=== PATIENT | female | born 1945 | race Caucasian/White ===

== ENCOUNTER 2018-11-10 16:33 | Emergency (ER) | payer OTHER ==
--- NOTE | 2018-11-10 17:05 | PDOC ---
History of Present Illness - General Chief Complaint: Chest Pain Stated Complaint: CHEST PAIN Time Seen by Provider: 11/10/18 16:49 - History of Present Illness Initial Comments: The pt is a 72F w/ a history of HTN, GERD, HLD, hypothyroidism, aneurysm s/p corrective surgery (not coil) who presents for evaluation of chest pain. She reports that 1600 yesterday while sitting on the couch she began to experience [id number] chest pain that is non-radiating, intermittent, non- exertional w/ no identifiable associated symptoms. The pt noted it was worse throughout the afternoon. She went to [facility] where she was evaluated. Trop neg and pt was discharged and advised to f/u w/ Cardiology. Today the pt noted continued pain of the same quality but less intense (approx 10% of what it was). Denies recent illness, fevers/chills, WEBER, vision changes, SOB, abdominal pain, N /V/C/D, dysuria, hematuria, or changes in sensation. Takes ASA 81mg daily. PMH: HTN, GERD, HLD, hypopituitarism +Tobacco, Denies EtOH 11/10/18 17:06 Past History - Past Medical History Allergies/Adverse Reactions: Allergies Allergy/AdvReac Type Severity Reaction Status Date / Time Penicillins Allergy Severe Rash Verified 12/29/15 09:20 Home Medications: Ambulatory Orders Bromocriptine Mesylate [Parlodel] 0.625 mg PO DAILY 12/23/13 Hydrochlorothiazide [Hctz -] 25 mg PO DAILY 12/23/13 Levothyroxine [Synthroid -] 50 mcg PO DAILY 12/23/13 Ranitidine [Zantac -] 150 mg PO BID 12/23/13 Timolol Maleate [Istalol] 5 ml OP DAILY 12/23/13 Docusate Sodium [Colace -] 100 mg PO PRN PRN 04/27/15 Atorvastatin Ca [Lipitor] 20 mg PO HS #0 tablet 04/28/15 Mag Carb/Aluminum Hydrox/Algin [Gaviscon Extra Strength Liquid] 355 ml PO PRN # 0 oral.susp 05/08/16 Aspirin 81 mg PO DAILY 11/10/18 Anemia: No Asthma: No Cancer: No Cardiac Disorders: No CVA: No COPD: No CHF: No Dementia: No Diabetes: No GI Disorders: Yes (GERD,DIVERTICULOSIS, COLON POLYP) Disorders: Yes (DION.OVARIAN COMPLEX CYSTS) HTN: Yes Hypercholesterolemia: Yes Seizures: No 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) - Surgical History Abdominal Surgery: No Appendectomy: No Cardiac Surgery: No Cholecystectomy: No Lung Surgery: No Neurologic Surgery: No Orthopedic Surgery: Yes (RIGHT SHOULDER SX) - Suicide/Smoking/Psychosocial Hx Smoking History: Current every day smoker Have you smoked in the past 12 months: Yes Number of Cigarettes Smoked Daily: 20 'Breaking Loose' booklet given: 04/27/15 Hx Alcohol Use: No Drug/Substance Use Hx: No Substance Use Type: None Review of Systems - Review of Systems Able to Perform ROS?: Yes Comments:: GENERAL/CONSTITUTIONAL: No fever or chills. No weakness HEAD, EYES, EARS, NOSE AND THROAT: No change in vision. No ear pain or discharge. No sore throat CARDIOVASCULAR: No shortness of breath RESPIRATORY: Denies cough, hemoptysis GASTROINTESTINAL: No nausea, vomiting, diarrhea or constipation GENITOURINARY: No dysuria, frequency, or change in urination MUSCULOSKELETAL: No joint or muscle swelling or pain. No neck or back pain SKIN: No rash NEUROLOGIC: No headache, vertigo, loss of consciousness, or change in strength/ sensation ENDOCRINE: No increased thirst. No abnormal weight change HEMATOLOGIC/LYMPHATIC: No anemia, easy bleeding, or history of blood clots ALLERGIC/IMMUNOLOGIC: No hives or skin allergy 11/10/18 17:07 Is the patient limited Thai proficient: No *Physical Exam - Vital Signs Vital Signs Temp Pulse Resp BP Pulse Ox 98.7 F 90 18 151/77 100 11/10/18 17:11 11/10/18 17:11 11/10/18 17:11 11/10/18 17:11 11/10/18 17:11 - Physical Exam Comments: GENERAL: Awake, alert, and oriented to person/place/time, in no acute distress HEAD: No signs of trauma, normocephalic, atraumatic EYES: PERRLA, EOMI, sclera anicteric, conjunctiva clear ENT: Hearing grossly normal, nares patent, oropharynx clear without exudates. Moist mucosa LUNGS: No distress, speaks full sentences, clear to auscultation bilaterally HEART: Regular rate and rhythm, normal S1 and S2, no murmurs appreciated, peripheral pulses normal and equal bilaterally ABDOMEN: Soft, nontender, normoactive bowel sounds. No guarding, no rebound EXTREMITIES: Normal inspection, Normal range of motion, no edema NEUROLOGICAL: Cranial nerves II through XII grossly intact. Normal speech, no focal sensorimotor deficits SKIN: Warm, Dry, no rashes or lesions noted 11/10/18 17:17 ED Treatment Course - LABORATORY CBC & Chemistry Diagram: 11/10/18 18:05 Medical Decision Making - Medical Decision Making Results from [facility] dated 11/09/18 @ 2236 Trop I stat 0.00 Cr 1.09 WBC 9.5 Hgb 12.4 Will obtain an ECG and CXR and Trop I here ECG w/ NSR, 1st degree AV block w/ incomplete RBBB, HR 72; QTc 490 -Similar to previous ECG in 201411/10/18 17:56 Pt discussed w/ Cardiology, will obtain two Trop; recommend ECHO and stress test Pt follows up with Dr. Andersen 11/10/18 18:24 CXR w/o evidence of PNA/PNX 11/10/18 18:33 Initial Trop I neg 11/10/18 19:02 *DC/Admit/Observation/Transfer Diagnosis at time of Disposition: Chest pain Qualifiers: Chest pain type: unspecified Qualified Code(s): R07.9 - Chest pain, unspecified - Referrals Referrals: Sharita Alejandre MD [Primary Care Provider] - Brandon Andersen MD [Staff Physician] - - Patient Instructions Printed Discharge Instructions: DI for Chest Pain - Post Discharge Activity
[2018-11-10 17:14] VITALS: BP 151/77; PULSE 90; TEMP 98.7; BMI 31.8
--- NOTE | 2018-11-10 17:18 | PDOC ---
Attending Attestation - HPI HPI: 11/10/18 18:16 72 year old female with past medical history of hypertension, hyperlipidemia, aneurysm s/p coil who presents to the ED with complaints of sternal, exertional chest pain that began last night. She states the pain is pressure-like, non- radiating and is not associated with nausea, vomiting, diaphoresis, SOB, headache, or focal neurological deficits. It is not relieved by tums or aspirin. Patient was in the [place] last evening when she developed her symptoms and went to the local urgent care. Her blood pressure was noted to be elevated and an ECG was performed which was "abnormal". She was sent to [facility] where a cardiac workup was done. She states her cardiac enzymes were negative and had a normal CXR report, however patient does not have any records from this visit. She was discharged and told to follow up with her hospital scientist. Today, her chest pain has persisted, prompting her to be seen in the ER today. PCP: Dr. Alejandre Cards: Dr. Andersen - Physicial Exam PE: 11/10/18 18:17 GENERAL: Well developed, well nourished. Awake and alert. No acute distress. CARDIOVASCULAR: Regular rate and rhythm. No murmurs, rubs, or gallops. PULMONARY: No evidence of respiratory distress. Lungs clear to auscultation bilaterally. ABDOMINAL: Soft. Non-tender. Non-distended. No rebound or guarding. EXTREMITIES: No cyanosis. No clubbing. No edema. No calf tenderness. SKIN: Warm and dry. Normal capillary refill. No rashes. No jaundice. NEUROLOGICAL: Alert, awake, appropriate. Cranial nerves 2-12 intact. - Medical Decision Making 11/10/18 18:18 Documentation prepared by Casi Perez, acting as medical registrar for Oliva Lucio MD. 11/10/18 18:00 Phone call placed to Dr. Silva, covering for Dr. Andersen. Call was returned promptly and case was discussed. <Casi Perez - Last Filed: 11/10/18 18:18> - Resident Resident Name: Enzo Altamirano - ED Attending Attestation I have performed the following: I have examined & evaluated the patient, The case was reviewed & discussed with the resident, I agree w/resident's findings & plan, Exceptions are as noted - HPI HPI: 11/10/18 17:24 72-year-old female who had chest pain since yesterday. Presents today with the same complaint. History of present illness she was seen and evaluated yesterday in a [facility] and had a cardiac workup that was negative, by patient' s report. - Medical Decision Making 11/10/18 19:27 plan 2 trop -pt was encouraged to be admitted for stress test in the morning but she insisted that if her 2 troponins were negative she would follow up with Dr Pérez tomorrow 11/10/18 21:47 pt has had 2 negative troponins and d/c home <Oliva Lucio - Last Filed: 11/10/18 21:47>
[2018-11-10] MEDS ORDERED: ASPIRIN 81 MG CHEWABLE TABLETS PO ONE (18:22)
[2018-11-10] MEDS ORDERED: ASPIRIN 81 MG CHEWABLE TABLETS ONE ×2 (18:24→18:29)
[2018-11-10 18:59] LABS: ALBUMIN 3.5 g/dl (3.4-5.0); ALK PHOS 48 U/L (45-117); ANION GAP 7 MMOL/L (8-16); BILIRUBIN,TOTAL 0.4 mg/dL (0.2-1); BLOOD UREA NITROGEN 16 mg/dL (7-18); CALCIUM 8.6 mg/dL (8.5-10.1); CHLORIDE 104 mmol/L (98-107); CO2 26 mmol/L (21-32); CREATININE 1.2 mg/dL (0.55-1.3); GLUCOSE,RANDOM 95 mg/dL (74-106); POTASSIUM 3.5 mmol/L (3.5-5.1); SGOT/AST 17 U/L (15-37); SGPT/ALT 20 U/L (13-61); SODIUM 137 mmol/L (136-145); TOT PROT 6.9 g/dl (6.4-8.2)
--- NOTE | 2018-11-10 21:24 | PDOC ---
*Physical Exam - Vital Signs Last Vital Signs Temp Pulse Resp BP Pulse Ox 98.7 F 90 18 151/77 100 11/10/18 17:11 11/10/18 17:11 11/10/18 17:11 11/10/18 17:11 11/10/18 17:11 ED Treatment Course - LABORATORY CBC & Chemistry Diagram: 11/10/18 18:05 - ADDITIONAL ORDERS Additional order review: Laboratory Results 11/10/18 18:05 Sodium 137 Potassium 3.5 Chloride 104 Carbon Dioxide 26 Anion Gap 7 L BUN 16 Creatinine 1.2 Creat Clearance w eGFR 44.29 Random Glucose 95 Calcium 8.6 Total Bilirubin 0.4 AST 17 ALT 20 Alkaline Phosphatase 48 Troponin I < 0.02 Total Protein 6.9 Albumin 3.5 - Medications Given in the ED: ED Medications Discontinued Medications Generic Name Dose Route Start Last Admin Trade Name Freq PRN Reason Stop Dose Admin Aspirin 243 mg 11/10/18 18:22 11/10/18 18:45 Asa - PO 11/10/18 18:23 243 mg ONCE ONE Administration Medical Decision Making - Medical Decision Making Sign out received from Dr Altamirano Dania Kyle is a 72yo woman with a PMH of HTN, GERD, HLD, hypothyroidism, aneurysm s/p surgical correction who presented to the ED with non-radiating, intermittent, non-exertional, anterior thoracic chest pain. ED course so far was notable for EKG without concerning changes (NSR w/ 1st degree block, HR 72) unchanged from prior. Trop negative. Dr Altamirano discussed the results with Ms Kyle's lead programmer, Dr Andersen, who recommended echo and stress test. Per conversation held with day team, Ms Kyle decided to stay for a repeat troponin but will follow up as an outpatient for additional testing with cardiology. 11/10/18 21:24 - Repeat trop negative - Will d/c home with cardiology follow up. Discussed with Dr Lucio. Iveth Feliz PGY1 *DC/Admit/Observation/Transfer Diagnosis at time of Disposition: Chest pain Qualifiers: Chest pain type: unspecified Qualified Code(s): R07.9 - Chest pain, unspecified - Discharge Dispostion Disposition: HOME Condition at time of disposition: Stable Decision to Admit order: No - Referrals Referrals: Sharita Alejandre MD [Primary Care Provider] - Brandon Andersen MD [Staff Physician] - - Patient Instructions Printed Discharge Instructions: DI for Chest Pain Additional Instructions: Discharge Instructions: You were seen in the ER for chest pain. You had an EKG and blood tests to make sure the pain was not caused by a heart problem, but your tests were normal. Your regular lead programmer was called, and he would like you to schedule several additional tests as an outpatient. Please call him on Sunday to set these up and to schedule a follow up appointment. Continue to take all of your regular medications as prescribed. Seek immediate medical care if you have worsening symptoms, chest pain with exertion, shortness of breath, lightheadedness, or any other medical emergency. - Post Discharge Activity
--- NOTE | 2018-11-11 22:50 | EKG ---
Test Reason : Blood Pressure : / mmHG Vent. Rate : 072 BPM Atrial Rate : 072 BPM P-R Int : 214 ms QRS Dur : 094 ms QT Int : 448 ms P-R-T Axes : 044 -03 042 degrees QTc Int : 490 ms SINUS RHYTHM WITH 1ST DEGREE A-V BLOCK INCOMPLETE RIGHT BUNDLE BRANCH BLOCK PROLONGED QT ABNORMAL ECG WHEN COMPARED WITH ECG OF 28-APR-2015 08:43, T WAVE VARIATION Confirmed by DARRELL SMILEY, JOSE ([id number]) on 11/11/2018 10:50:11 PM Referred By: Confirmed By:JOSE RAMÍREZ MD
== END 2018-11-10 21:46 | disposition home or self-care (01) ==
LOC: JER 16:33
DX: R07.9 Chest pain, unspecified (principal); I10 Essential (primary) hypertension; E78.00 Pure hypercholesterolemia, unspecified; K21.9 Gastro-esophageal reflux disease without esophagitis; E23.0 Hypopituitarism; F17.210 Nicotine dependence, cigarettes, uncomplicated
CPT/HCPCS: 71045-TC-FY; 80053; 84484; 93005; 93010; 99283-25

== ENCOUNTER 2019-07-04 09:01 | Day surgery (SDC) | payer OTHER ==
[2019-07-03 10:28] VITALS: BMI 27.1
[2019-07-04 13:22] VITALS: BP 112/62; PULSE 84; TEMP 98
--- NOTE | 2019-07-07 17:34 | PATH ---
Surgical Pathology Report Patient Name: FABIÁN BRIGGS [facility]. Rec. #: [id number] /Age/Gender: 1945 (Age: 73) / F Account: [id number] Location: U-ENDOSCOPY Taken: 07/04/2019 Received: 07/04/2019 Reported: 07/07/2019 Physicians: Hong Schneider M.D. Specimen(s) Received RECTAL POLYPS Clinical History History of colonic adenomatous polyps, family history of colon cancer Postoperative diagnosis: Colon polyps, diverticulosis Final Diagnosis RECTAL POLYPS, BIOPSY: HYPERPLASTIC POLYP(S). Electronically Signed Yuliya Villanueva M.D. Gross Description Received in formalin, labeled "rectal polyps biopsy" are 5 alejo, irregular portions of soft tissue ranging from 0.1-0.4 cm. in greatest dimension. The specimens are submitted in toto in one cassette. /07/04/201907/04/2019
== END 2019-07-04 12:35 | disposition home or self-care (01) ==
LOC: JASU-ENDO 09:01
PROVIDERS: ATTEND Internal Medicine Gastroenterology
PROC: 0DBP8ZX Excision of Rectum, Via Natural or Artificial Opening Endoscopic, Diagnostic (ICD-10-PCS; principal; 2019-07-04 10:15)
DX: Z12.11 Encounter for screening for malignant neoplasm of colon (principal); Z86.010 Personal history of colon polyps; Z80.0 Family history of malignant neoplasm of digestive organs; K57.30 Diverticulosis of large intestine without perforation or abscess without bleeding; K62.1 Rectal polyp; K64.4 Residual hemorrhoidal skin tags
CPT/HCPCS: 88305-TC

== ENCOUNTER 2020-07-01 16:58 | Emergency (ER) | payer OTHER ==
[2020-07-01 17:08] VITALS: BP 127/73; TEMP 98.6; BMI 26.4
[2020-07-01 17:09] VITALS: PULSE 89
--- OUTSIDE RECORDS SUMMARY | 2020-07-01 17:12 | XMS ---
:1945 Author Organization [facility] Support Name Relationship Address Phone RE, RETIRED Unavailable Unavailable Unavailable RE Unavailable Unavailable Unavailable FRITZ BACA FRIEND [address] [place] [address] Re-disclosure Warning The records that you are about to access may contain information from federally- assisted alcohol or drug abuse programs. If such information is present, then the following federally mandated warning applies: This information has been disclosed to you from records protected by federal confidentiality rules (42 CFR part 2). The federal rules prohibit you from making any further disclosure of this information unless further disclosure is expressly permitted by the written consent of the person to whom it pertains or as otherwise permitted by 42 CFR part 2. A general authorization for the release of medical or other information is NOT sufficient for this purpose. The Federal rules restrict any use of the information to criminally investigate or prosecute any alcohol or drug abuse patient.The records that you are about to access may contain highly sensitive health information, the redisclosure of which is protected by Article 27-F of the [facility] Public Health law. If you continue you may haveaccess to information: Regarding HIV / AIDS; Provided by facilities licensed or operated by the [facility] Office of Mental Health; or Provided by the [facility] Office for People With Developmental Disabilities. If such information is present, then the following [facility] mandated warning applies: This information has been disclosed to you from confidential records which are protected by state law. State law prohibits you from making any further disclosure of this information without the specific written consent of the person to whom it pertains, or as otherwise permitted by law. Any unauthorized further disclosure in violation of state law may result in a fine or senior care sentence or both. A general authorization for the release of medical or other information is NOT sufficient authorization for further disclosure. Insurance Providers Payer name Policy type Policy ID Covered Covered democrat's Policy P allan / Coverage democrat ID relationship to Lazar Inf ormation type lazar AETNA MEBMZMVP SP MEBMZMVP MEDICARE AETNA MEBMZMVP SP MEBMZMVP MEDICARE
--- NOTE | 2020-07-01 17:19 | PDOC ---
Suture Removal/Wound Check HPI - History of Present Illness Chief Complaint: Suture/Staple Removal (other) Stated Complaint: REMOVAL SUTURES Time Seen by Provider: 07/01/20 17:17 History Source: Yes: Patient, Old Records Exam Limitations: Yes: No Limitations Treated at: [facility] Date of Last ED visit: 06/21/20 - Previous ED Treatment Type of procedure performed on last visit: Yes: Laceration Repair Tetanus Immunization: Yes: Up to Date Antibiotics Prescribed: No Past History - Medical History Allergies/Adverse Reactions: Allergies Allergy/AdvReac Type Severity Reaction Status Date / Time Penicillins Allergy Severe Rash Verified 06/22/20 10:06 Home Medications: Ambulatory Orders Bromocriptine Mesylate [Parlodel] 0.625 mg PO DAILY 12/23/13 Hydrochlorothiazide [Hctz -] 25 mg PO DAILY 12/23/13 Levothyroxine [Synthroid -] 50 mcg PO DAILY 12/23/13 Ranitidine [Zantac -] 150 mg PO BID 12/23/13 Docusate Sodium [Colace -] 100 mg PO PRN PRN 04/27/15 Atorvastatin Ca [Lipitor] 20 mg PO HS #0 tablet 04/28/15 Aspirin 81 mg PO DAILY 11/10/18 Cholecalciferol (Vitamin D3) [Vitamin D -] 400 unit PO DAILY 07/03/19 Timolol 0.25% [Timoptic 0.25%] 0 ml OU BID 07/03/19 Clindamycin HCl 150 mg PO TID #21 capsule 07/01/20 Anemia: No Asthma: No Cancer: No Cardiac Disorders: No CVA: No COPD: No CHF: No Dementia: No Diabetes: No GI Disorders: Yes (GERD,DIVERTICULOSIS, COLON ADENOMAS) Disorders: Yes (DION.OVARIAN COMPLEX CYSTS) HTN: Yes Hypercholesterolemia: Yes Seizures: No 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) - Surgical History Abdominal Surgery: No Appendectomy: No Cardiac Surgery: No Cholecystectomy: No Lung Surgery: No Neurologic Surgery: Yes (BYPASS OF 2 CEREBRAL ANEURYSMS) Orthopedic Surgery: Yes (RIGHT SHOULDER SX) - Psycho-Social/Smoking History Smoking History: Current every day smoker Have you smoked in the past 12 months: Yes Number of Cigarettes Smoked Daily: 20 Information on smoking cessation initiated: No 'Breaking Loose' booklet given: 04/27/15 - Substance Abuse Hx (Audit-C & DAST Scrn) How often the patient has a drink containing alcohol: Never Score: In Men: 4 or > Positive; In Women: 3 or > Positive: 0 Screen Result (Pos requires Nsg. Audit-10AR): Negative In the last yr the pt used illegal drug/Rx for NonMed reason: No Score: Yes response is considered Positive: 0 Screen Result (Positive result requires Nsg. DAST-10): Negative Suture Removal/Wound Check PE - Physical Exam Laceration/Wound Check Symptoms: reports: Redness Current Severity Level: None Maximum Severity Level: None Pain Localization: None Location of Laceration/Wound: right: Hand (Dorsum of the hands over the fifth metacarpal) Pain Radiation: None *Review of Systems - Review of Systems Able to Perform ROS?: Yes Constitutional: No: Symptoms Reported HEENTM: No: Symptoms Reported Respiratory: No: Symptoms reported Cardiac (ROS): No: Symptoms Reported ABD/GI: No: Symptoms Reported : No: Symptoms Reported Musculoskeletal: No: Symptoms Reported Integumentary: Yes: See HPI Neurological: No: Symptoms reported *Physical Exam - Vital Signs Last Vital Signs Temp Pulse Resp BP Pulse Ox 98.6 F 89 19 127/73 100 07/01/20 17:06 07/01/20 17:06 07/01/20 17:06 07/01/20 17:06 07/01/20 17:06 - Physical Exam General Appearance: Yes: Appropriately Dressed. No: Apparent Distress Integumentary: positive: Dry, Warm, Erythema, Other (2 wounds present to the dorsum of the right hand over the fifth metacarpal. [address] and 1 wounds [address] and the other with surrounding erythema. No fluctuance or discharge is present. Wounds are well approximated.) Medical Decision Making - Medical Decision Making 07/01/20 17:22 A/P: 74-year-old woman with encounter for suture removal Suture line is well approximated and well-healed. Area surrounding the wounds is erythematous with the appearance consistent with cellulitis There is no discharge, drainage or fluctuance present upon palpation 7 stitches removed without incident Discharge home with prescription for clindamycin as patient is allergic to penicillins. I discussed the physical exam findings, ancillary test results and final diagnoses with the patient. I answered all of the patient's questions. The patient was satisfied with the care received and felt comfortable with the discharge plan and treatment plan. The patient will call their primary care physician within 24 hours to arrange follow-up and will return to the Emergency Department with any new, persistent or worsening symptoms. Portions of this note have been documented using voice recognition software. As a result, errors may occur in the manager intermediate process. Effort has been made to correct all grammatical and manager intermediate error, but some may have been missed which may produce sporadic inaccurate manager intermediate or nonsensical phrases. Discharge - Discharge Information Problems reviewed: Yes Clinical Impression/Diagnosis: Encounter for removal of sutures Cellulitis Qualifiers: Site of cellulitis: extremity Site of cellulitis of extremity: upper extremity Laterality: right Qualified Code(s): L03.113 - Cellulitis of right upper limb Condition: Stable Disposition: HOME - Admission No - Additional Discharge Information Prescriptions: Clindamycin HCl 150 mg PO TID #21 capsule - Follow up/Referral Referrals: Sharita Alejandre MD [Primary Care Provider] - - Patient Discharge Instructions Additional Instructions: Take clindamycin 150 mg 3 times a day for the next 7 days Finish all antibiotics even if you feel better. Apply warm compresses to affected areas as needed. Return to emergency department for any worsening pain, drainage, or any other concerns. Thank you very much for choosing us to provide your emergent health care needs. - Post Discharge Activity
== END 2020-07-01 17:22 | disposition home or self-care (01) ==
LOC: JER 16:58 → JERFT 16:58
DX: Z48.02 Encounter for removal of sutures (principal); L03.113 Cellulitis of right upper limb
CPT/HCPCS: 99282-25

== ENCOUNTER 2022-07-14 13:50 | Emergency (ER) | payer OTHER ==
[2022-07-14 14:06] VITALS: BP 124/75; PULSE 85; RESP 18; TEMP 97.8; BMI 26.9
[2022-07-14 15:39] LABS: BASO % 0.7 % (0-2.0); EOS % 2.3 % (0-4.5); HEMOGLOBIN 12.4 GM/dL (10.7-15.3); LYMPH % 31.4 % (8-40); MCH 31.2 pg (25.7-33.7); MCHC 34.3 g/dl (32.0-36.0); MEAN CELL VOLUME 90.9 fl (80-96); MEAN PLT VOLUME 7.5 fl (7.5-11.1); MONO % 8.9 % (3.8-10.2); NEUT % 56.7 % (42.8-82.8); PLATELET COUNT 265 10^3/uL (134-434); RBC 3.97 M/mm3 (3.60-5.2); RDW 13.8 % (11.6-15.6); WHITE BLOOD COUNT 7.2 K/mm3 (4.0-10.0)
[2022-07-14 15:48] LABS: INR 1.01 (0.83-1.09); PROTHROMBIN TIME (PATIENT) 11.6 SEC (9.7-13.0)
[2022-07-14 15:51] LABS: ACTIVATED PTT 33.3 SECONDS (25.2-36.5)
[2022-07-14 16:02] LABS: CALCIUM 9.2 mg/dL (8.5-10.1)
[2022-07-14 16:03] LABS: ALBUMIN 3.5 g/dl (3.4-5.0); BLOOD UREA NITROGEN 15.4 mg/dL (7-18)
[2022-07-14 16:05] LABS: CREATININE 1.2 mg/dL (0.55-1.3)
[2022-07-14 16:08] LABS: BILIRUBIN,TOTAL 0.6 mg/dL (0.2-1); TOT PROT 7.1 g/dl (6.4-8.2)
[2022-07-14] MEDS ORDERED: POTASSIUM CHLORIDE ORAL LIQUID 20 MEQ/15 ML PO ONE (16:33)
[2022-07-14] MEDS ORDERED: POTASSIUM CHLORIDE TABS 20 MEQ TABLET.ER (FP) PO ONE (16:42)
[2022-07-14] MEDS ORDERED: POTASSIUM CHLORIDE ORAL LIQUID 20 MEQ/15 ML ONE (16:44)
== END 2022-07-14 19:20 | disposition left against medical advice (07) ==
LOC: JER 13:50
DX: R07.9 Chest pain, unspecified (principal); I45.10 Unspecified right bundle-branch block; R94.31 Abnormal electrocardiogram [ECG] [EKG]; E87.6 Hypokalemia
CPT/HCPCS: 36415; 71046-TC-FY; 80053; 84484; 85025; 85610; 85730; 93005; 93010; 99284-25; C9803-CS; U0003; U0005

== ENCOUNTER 2022-07-14 21:44 | Inpatient (IN) | payer OTHER ==
[2022-07-14 23:29] LABS: BASO % 0.7 % (0-2.0); HEMATOCRIT 36.4 % (32.4-45.2); HEMOGLOBIN 12.5 GM/dL (10.7-15.3); LYMPH % 35.9 % (8-40); MCH 31.3 pg (25.7-33.7); MCHC 34.3 g/dl (32.0-36.0); MEAN CELL VOLUME 91.2 fl (80-96); MEAN PLT VOLUME 7.2 fl (7.5-11.1); NEUT % 51.4 % (42.8-82.8); PLATELET COUNT 236 10^3/uL (134-434); RBC 3.99 M/mm3 (3.60-5.2); RDW 13.8 % (11.6-15.6)
[2022-07-14 23:52] LABS: CALCIUM 8.4 mg/dL (8.5-10.1)
[2022-07-14 23:54] LABS: ALBUMIN 3.1 g/dl (3.4-5.0); BLOOD UREA NITROGEN 15.1 mg/dL (7-18)
[2022-07-14 23:56] LABS: CREATININE 1.1 mg/dL (0.55-1.3)
[2022-07-14 23:58] LABS: BILIRUBIN,TOTAL 0.3 mg/dL (0.2-1); TOT PROT 6.3 g/dl (6.4-8.2)
[2022-07-15] MEDS ORDERED: LACTATED RINGERS SOLUTION 1000 ML INFUS.BAG IV ONE (00:25)
[2022-07-15] MEDS ORDERED: ENOXAPARIN NA (PORCINE) 80 MG/0.8 ML DISP.SYRIN SQ ONE ×2 (00:42→00:45)
[2022-07-15 00:55] LABS: EPI CELLS 4 /uL (0-25.1); HYALINE CASTS 1 /uL (0-3.1); URINE APPEARANCE CLEAR; URINE BACTERIA 3 /uL (0-1359); URINE BILIRUBIN NEGATIVE (NEGATIVE); URINE COLOR YELLOW; URINE GLUCOSE (UA) NEGATIVE (NEGATIVE); URINE KETONE NEGATIVE (NEGATIVE); URINE LEUK ESTERASE NEGATIVE (NEGATIVE); URINE NITRITE NEGATIVE (NEGATIVE); URINE PROTEIN 1+ (NEGATIVE); URINE RBC 36 /uL (0-23.9); URINE UROBILINOGEN 0.2 mg/dL (0.2-1.0); URINE WBC 20 /uL (0-25.8)
[2022-07-15 06:14] LABS: BASO % 0.7 % (0-2.0); EOS % 2.3 % (0-4.5); HEMATOCRIT 36.4 % (32.4-45.2); HEMOGLOBIN 12.1 GM/dL (10.7-15.3); LYMPH % 35.8 % (8-40); MCH 30.2 pg (25.7-33.7); MCHC 33.3 g/dl (32.0-36.0); MEAN CELL VOLUME 90.5 fl (80-96); MEAN PLT VOLUME 7.6 fl (7.5-11.1); NEUT % 53.2 % (42.8-82.8); PLATELET COUNT 240 10^3/uL (134-434); RBC 4.02 M/mm3 (3.60-5.2); RDW 13.7 % (11.6-15.6)
[2022-07-15 06:34] LABS: ALBUMIN 2.9 g/dl (3.4-5.0); BLOOD UREA NITROGEN 13.4 mg/dL (7-18); CALCIUM 8.4 mg/dL (8.5-10.1)
[2022-07-15 06:37] LABS: CREATININE 1.1 mg/dL (0.55-1.3)
[2022-07-15 06:39] LABS: BILIRUBIN,TOTAL 0.4 mg/dL (0.2-1)
[2022-07-15] MEDS ORDERED: DOCUSATE SODIUM 100 MG CAPSULE (FP) PO PRN (09:39)
[2022-07-15] MEDS: POTASSIUM CHLORIDE TABS 20 MEQ TABLET.ER (FP) PO SCH (09:46)
[2022-07-15] MEDS: ASPIRIN 81 MG CHEWABLE TABLETS PO SCH (09:46)
[2022-07-15 10:52] VITALS: BMI 26.9
[2022-07-15] MEDS: metoPROLOL SUCCINATE 25 MG TAB.SR.24H (FP) PO SCH (11:04)
[2022-07-15] MEDS: FAMOTIDINE 20 MG TABLET PO SCH (11:05)
[2022-07-15] MEDS: LEVOTHYROXINE NA 50 MCG TABLET (FP) PO SCH ×2 (11:05→11:17)
[2022-07-15] MEDS: CHOLECALCIFEROL (VIT D3) 400 UNIT (10 MCG) TABLET PO SCH (11:05)
[2022-07-15] MEDS: HYDROCHLOROTHIAZIDE 25 MG TABLET (FP) PO SCH (11:05)
[2022-07-15] MEDS: SODIUM CHLORIDE 1,000 ML IV SCH (11:05)
[2022-07-15] MEDS: TIMOLOL 0.25% OPHTHALMIC SOL 5 ML BOTTLE OU SCH ×2 (11:37→22:06)
[2022-07-15] MEDS: BROMOCRIPTINE MESYLATE 2.5 MG PO SCH (15:27)
[2022-07-15] MEDS: ATORVASTATIN CA 20 MG TABLET (FP) PO SCH (22:05)
[2022-07-16] MEDS: SODIUM CHLORIDE 1,000 ML IV SCH (07:02)
[2022-07-16] MEDS: LEVOTHYROXINE NA 50 MCG TABLET (FP) PO SCH (07:02)
[2022-07-16 07:40] LABS: BASO % 0.8 % (0-2.0); EOS % 3.5 % (0-4.5); HEMATOCRIT 33.7 % (32.4-45.2); HEMOGLOBIN 11.6 GM/dL (10.7-15.3); MCH 31.2 pg (25.7-33.7); MCHC 34.4 g/dl (32.0-36.0); MEAN CELL VOLUME 90.8 fl (80-96); MEAN PLT VOLUME 7.7 fl (7.5-11.1); MONO % 7.5 % (3.8-10.2); NEUT % 44.2 % (42.8-82.8); PLATELET COUNT 228 10^3/uL (134-434); RBC 3.71 M/mm3 (3.60-5.2)
[2022-07-16 07:44] LABS: CALCIUM 8.1 mg/dL (8.5-10.1)
[2022-07-16 07:46] LABS: BLOOD UREA NITROGEN 12.3 mg/dL (7-18)
[2022-07-16 07:48] LABS: CREATININE 1.2 mg/dL (0.55-1.3)
[2022-07-16] MEDS: FAMOTIDINE 20 MG TABLET PO SCH (09:22)
[2022-07-16] MEDS: HYDROCHLOROTHIAZIDE 25 MG TABLET (FP) PO SCH (09:22)
[2022-07-16] MEDS: POTASSIUM CHLORIDE TABS 20 MEQ TABLET.ER (FP) PO SCH (09:22)
[2022-07-16] MEDS: ASPIRIN 81 MG CHEWABLE TABLETS PO SCH (09:22)
[2022-07-16] MEDS: metoPROLOL SUCCINATE 25 MG TAB.SR.24H (FP) PO SCH (09:22)
[2022-07-16] MEDS: CHOLECALCIFEROL (VIT D3) 400 UNIT (10 MCG) TABLET PO SCH (09:23)
[2022-07-16] MEDS: BROMOCRIPTINE MESYLATE 2.5 MG PO SCH (09:23)
[2022-07-16] MEDS: ENOXAPARIN NA (PORCINE) 40 MG/0.4 ML DISP.SYRIN SQ SCH (09:23)
[2022-07-16] MEDS: TIMOLOL 0.25% OPHTHALMIC SOL 5 ML BOTTLE OU SCH ×2 (09:24→22:01)
[2022-07-16] MEDS: ATORVASTATIN CA 20 MG TABLET (FP) PO SCH (22:01)
[2022-07-17] MEDS: LEVOTHYROXINE NA 50 MCG TABLET (FP) PO SCH (06:40)
[2022-07-17] MEDS: SODIUM CHLORIDE 1,000 ML IV SCH (06:40)
[2022-07-17] MEDS: metoPROLOL SUCCINATE 25 MG TAB.SR.24H (FP) PO SCH ×2 (08:07→13:54)
[2022-07-17] MEDS ORDERED: REGADENOSON 0.4 MG/5 ML PRE-FILLED SYRINGE IVPUSH ONE ×2 (09:19→09:45)
[2022-07-17] MEDS: POTASSIUM CHLORIDE TABS 20 MEQ TABLET.ER (FP) PO SCH (13:53)
[2022-07-17] MEDS: HYDROCHLOROTHIAZIDE 25 MG TABLET (FP) PO SCH (13:53)
[2022-07-17] MEDS: ASPIRIN 81 MG CHEWABLE TABLETS PO SCH (13:53)
[2022-07-17] MEDS: ENOXAPARIN NA (PORCINE) 40 MG/0.4 ML DISP.SYRIN SQ SCH (13:53)
[2022-07-17] MEDS: FAMOTIDINE 20 MG TABLET PO SCH (13:54)
[2022-07-17] MEDS: TIMOLOL 0.25% OPHTHALMIC SOL 5 ML BOTTLE OU SCH ×2 (13:54→21:46)
[2022-07-17] MEDS: CHOLECALCIFEROL (VIT D3) 400 UNIT (10 MCG) TABLET PO SCH (13:54)
[2022-07-17] MEDS: BROMOCRIPTINE MESYLATE 2.5 MG PO SCH (13:54)
[2022-07-17] MEDS: ATORVASTATIN CA 20 MG TABLET (FP) PO SCH (21:46)
[2022-07-18] MEDS: LEVOTHYROXINE NA 50 MCG TABLET (FP) PO SCH (06:02)
[2022-07-18 07:59] LABS: EOS % 3.1 % (0-4.5); HEMATOCRIT 31.2 % (32.4-45.2); HEMOGLOBIN 10.7 GM/dL (10.7-15.3); LYMPH % 40.3 % (8-40); MCHC 34.3 g/dl (32.0-36.0); MEAN CELL VOLUME 90.4 fl (80-96); MEAN PLT VOLUME 7.8 fl (7.5-11.1); MONO % 7.8 % (3.8-10.2); NEUT % 47.8 % (42.8-82.8); PLATELET COUNT 236 10^3/uL (134-434); RBC 3.45 M/mm3 (3.60-5.2); RDW 13.5 % (11.6-15.6)
[2022-07-18 08:26] LABS: BLOOD UREA NITROGEN 12.2 mg/dL (7-18); CALCIUM 8.3 mg/dL (8.5-10.1)
[2022-07-18 08:29] LABS: CREATININE 1.1 mg/dL (0.55-1.3)
[2022-07-18] MEDS: POTASSIUM CHLORIDE TABS 20 MEQ TABLET.ER (FP) PO SCH (10:44)
[2022-07-18] MEDS: ENOXAPARIN NA (PORCINE) 40 MG/0.4 ML DISP.SYRIN SQ SCH (10:44)
[2022-07-18] MEDS: metoPROLOL SUCCINATE 25 MG TAB.SR.24H (FP) PO SCH (10:44)
[2022-07-18] MEDS: ASPIRIN 81 MG CHEWABLE TABLETS PO SCH (10:44)
[2022-07-18] MEDS: FAMOTIDINE 20 MG TABLET PO SCH (10:44)
[2022-07-18] MEDS: HYDROCHLOROTHIAZIDE 25 MG TABLET (FP) PO SCH (10:44)
[2022-07-18] MEDS: CHOLECALCIFEROL (VIT D3) 400 UNIT (10 MCG) TABLET PO SCH (10:44)
[2022-07-18] MEDS: TIMOLOL 0.25% OPHTHALMIC SOL 5 ML BOTTLE OU SCH (10:49)
[2022-07-18] MEDS: BROMOCRIPTINE MESYLATE 2.5 MG PO SCH (12:33)
[2022-07-18 14:26] VITALS: BP 130/70; PULSE 71; RESP 17; TEMP 97.4
== END 2022-07-18 14:33 | disposition home or self-care (01) | DRG 310 ==
LOC: JER 21:44 → JERBED 23:27 → J4W 07-15 07:35
PROVIDERS: ADMIT Internal Medicine; ATTEND Internal Medicine
DX: I45.10 Unspecified right bundle-branch block (principal); I48.91 Unspecified atrial fibrillation; J44.9 Chronic obstructive pulmonary disease, unspecified; I10 Essential (primary) hypertension; E03.9 Hypothyroidism, unspecified; K21.9 Gastro-esophageal reflux disease without esophagitis; E78.5 Hyperlipidemia, unspecified; F17.210 Nicotine dependence, cigarettes, uncomplicated; R07.9 Chest pain, unspecified
CPT/HCPCS: 36415; 70450-TC; 71045-TC-FY; 71275-TC; 78452-TC; 80048; 80053; 81003; 82550; 82553; 83735; 84484; 85025; 85379; 87086; 93005; 93010; 93017; 93306-TC; 93880-TC; 99285-25; A9502; C9803-CS; J2785; Q9967; U0003; U0005

== ENCOUNTER 2024-06-27 04:34 | Day surgery (SDC) | payer OTHER ==
[2024-06-20 10:57] VITALS: BMI 26.7
[2024-06-27 11:07] VITALS: TEMP 97.7
[2024-06-27 11:15] VITALS: RESP 17
[2024-06-27 13:04] VITALS: PULSE 85
[2024-06-27 13:07] VITALS: BP 114/83
== END 2024-06-27 12:00 | disposition home or self-care (01) ==
LOC: JASU-ENDO 04:34
PROVIDERS: ATTEND Internal Medicine Gastroenterology
PROC: 0DBL8ZX Excision of Transverse Colon, Via Natural or Artificial Opening Endoscopic, Diagnostic (ICD-10-PCS; 2024-06-27)
PROC: 0DBH8ZX Excision of Cecum, Via Natural or Artificial Opening Endoscopic, Diagnostic (ICD-10-PCS; 2024-06-27)
PROC: 0DBP8ZX Excision of Rectum, Via Natural or Artificial Opening Endoscopic, Diagnostic (ICD-10-PCS; 2024-06-27)
PROC: 0DBP8ZX Excision of Rectum, Via Natural or Artificial Opening Endoscopic, Diagnostic (ICD-10-PCS; principal; 2024-06-27 11:00)
DX: Z12.11 Encounter for screening for malignant neoplasm of colon (principal); D12.0 Benign neoplasm of cecum; D12.8 Benign neoplasm of rectum; K64.8 Other hemorrhoids; Z86.0100 Personal history of colon polyps, unspecified; Z80.0 Family history of malignant neoplasm of digestive organs; K62.89 Other specified diseases of anus and rectum
CPT/HCPCS: 88305-TC